=== PATIENT | male | born 1975 | race Caucasian/White ===

== ENCOUNTER 2019-08-24 20:51 | Emergency (ER) | payer SELFPAY ==
[~2019-08-24] VITALS: Ht 170.2 cm; Wt 76.2 kg
[2019-08-24 20:51] VITALS: BP 110/62
[~2019-08-24 20:51] MED LIST: OMEP20TC PO
--- NOTE | 2019-08-24 20:51 | NUR ---
SHOSHANA VICTORIA, PREBOOK. TAKEN TO CHAIR C
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
--- NOTE | 2019-08-24 21:29 | NUR ---
Dr. Smith examining patient.
[2019-08-24] MEDS ORDERED: BACITRACIN OINT 500 UNITS/GM PKT TP ONE (21:38)
[2019-08-24] MEDS ORDERED: NEOMYCIN/POLYMYXIN/BACITRACIN 0.9 GM/1 PKT TP ONE (21:40)
--- NOTE | 2019-08-24 22:08 | NUR ---
Note viral in EDM - 08/24/19 at 2209 by MEÑO Patient discharged with v/s stable. Written and verbal after care instructions given and explained. Patient verbalized understanding. Ambulatory with steady gait W/ [place] [employer] IN CUSTODY OF PT. All questions addressed prior to discharge. Advised to follow up with PMD.
[2019-08-24 22:09] VITALS: BP 123/65
--- NOTE | 2019-08-24 22:09 | NUR ---
Patient discharged with v/s stable. Written and verbal after care instructions given and explained. Patient verbalized understanding. Ambulatory with steady gait W/ [place] [employer] IN CUSTODY OF PT. All questions addressed prior to discharge. Advised to follow up with PMD.
== END 2019-08-24 22:09 ==
LOC: MED 20:51
DX: S60.512A Abrasion of left hand, initial encounter (principal); S60.511A Abrasion of right hand, initial encounter; S60.413A Abrasion of left middle finger, initial encounter; S60.811A Abrasion of right wrist, initial encounter; S60.416A Abrasion of right little finger, initial encounter; S80.211A Abrasion, right knee, initial encounter; Z79.899 Other long term (current) drug therapy; V49.49XA Driver injured in collision with other motor vehicles in traffic accident, initial encounter; W22.19XA Striking against or struck by other automobile airbag, initial encounter; Y93.89 Activity, other specified; Y92.488 Other paved roadways as the place of occurrence of the external cause; Y99.8 Other external cause status
CPT/HCPCS: 99283